=== PATIENT | male | born 2000 | race African-American/Black ===

== ENCOUNTER → 2025-01-15 11:16 | Outpatient (CLI) | payer OTHER, SELFPAY ==
[2025-01-15 12:17] LABS: Influenza A - CEPHEID Flu A NEGATIVE (NEGATIVE); Influenza B - CEPHEID Flu B NEGATIVE (NEGATIVE); Respiratory Syncytial Virus Negative (Negative)
[2025-01-15 14:58] LABS: COVID-19 CEPHEID 4-PLEX PCR Negative (Negative)
== END ==
PROVIDERS: PCP Family Medicine; Visit Provider Nurse Practitioner Family
DX: J02.9 Acute pharyngitis, unspecified (principal); Z20.828 Contact with and (suspected) exposure to other viral communicable diseases
CPT/HCPCS: 0241U; 87070; 87077; 87147

== ENCOUNTER → 2025-01-23 15:29 | Outpatient (CLI) | payer OTHER, SELFPAY | LOC: LAB 15:30 | PROVIDERS: PCP Family Medicine; Visit Provider Nurse Practitioner Family | DX: L98.9 Disorder of the skin and subcutaneous tissue, unspecified (principal) | CPT/HCPCS: 87070; 87205 ==

== ENCOUNTER 2025-01-30 12:54 | Emergency (ER) | payer OTHER, SELFPAY ==
[2025-01-30 13:20] VITALS: BP 136/81; PULSE 75; RESP 18; TEMP 36.8; O2SAT 99; BMI 33.8
--- NOTE | 2025-01-30 13:37 | DI.RAD.S_ITS ---
PROCEDURE: XR CHEST 2V INDICATIONS: URI/SOB x 1 week TECHNIQUE: 2 views of the chest were acquired. COMPARISON: None. FINDINGS: Surgical changes and devices: None. Lungs and pleura: Lungs are clear. No pleural effusions or pneumothorax. Mediastinum: Mediastinal contours are normal. Heart size is normal. Bones and chest wall: No suspicious bony abnormalities. Soft tissues appear unremarkable. IMPRESSION: No acute cardiopulmonary abnormality is seen. Approved by: Dayday Jose M.D. on 01/30/2025 at 13:13
[2025-01-30 14:12] LABS: Influenza A - CEPHEID Flu A NEGATIVE (NEGATIVE); Influenza B - CEPHEID Flu B NEGATIVE (NEGATIVE); Respiratory Syncytial Virus Negative (Negative)
[2025-01-30 14:16] LABS: COVID-19 CEPHEID 4-PLEX PCR Negative (Negative)
--- NOTE | 2025-01-30 14:25 | ED.URI ---
HPI - URI/Sore Throat General Chief Complaint: Upper Respiratory Symptoms Stated Complaint: Back Pain, Cold Symptoms Time Seen by Provider: 01/30/25 14:24 Source: patient Mode of arrival: Ambulatory Related Data Home Medications Medication Instructions Recorded Confirmed estradiol 2 mg tablet mg PO DIRECTED 09/16/24 01/29/25 needle (disp) 25 gauge 25 gauge x #1,000 ea 01/15/25 01/29/25 1 (BD PrecisionGlide) syringe (disposable) 1 mL (BD #1,000 ea 01/15/25 01/29/25 Luer-Deon Syringe) Previous Rx's Medication Instructions Recorded syringe with needle, safety 1 mL #100 ea 10/14/24 25 gauge x 1 (Aqinject Safety Syringe) estradiol cypionate 5 mg/mL 3 mg (0.6 mL) IM QWEEK #10 mL 11/30/24 intramuscular oil (Depo-Estradiol) spironolactone 50 mg tablet 50 mg PO BID #180 tabs 11/30/24 mometasone 50 mcg/actuation nasal 2 spray intranasal DAILY #17 grams 01/15/25 spray mupirocin 2 % topical ointment 1 applic topical TID #15 grams 01/23/25 triamcinolone acetonide 0.5 % 1 applic topical TID #15 grams 01/23/25 topical cream albuterol sulfate 90 mcg/actuation 2 puff inhalation Q6H PRN 01/29/25 aerosol inhaler shortness of breath or wheezing #6.7 grams Allergies Allergy/AdvReac Type Severity Reaction Status Date / Time Penicillins Allergy Mild Rash Verified 01/29/25 10:21 Patient History Medical History (Updated 09/16/24 @ 16:49 by Yulisa Potter MD) Gender dysphoria Family History (Updated 09/16/24 @ 16:50 by Yulisa Potter MD) Grandmother Diabetes mellitus Grandfather Hypertension Social History (Updated 09/16/24 @ 16:50 by Yulisa Potter MD) marital status: unmarried,single household members: family lives independently: Yes education level: high school occupational status: employed Smoking Status: Former smoker second hand exposure: No substance use type: marijuana Smoking Status: Former smoker Exam Initial Vital Signs Initial Vital Signs: Vital Signs Temperature 98.2 F 01/30/25 13:20 Pulse Rate 75 05/24/25 13:20 Respiratory Rate 18 01/30/25 13:20 Blood Pressure 136/81 01/30/25 13:20 Pulse Oximetry 99 01/30/25 13:20 Oxygen Delivery Method Room Air 01/30/25 13:20 Course Orders Ordered: ED Orders 01/30/25 13:30 Covid-19 + FLU A/B + RSV - PCR Stat 01/30/25 13:37 XR chest 2V Stat Vital Signs Vital signs: Vital Signs - 8 hr 01/30/25 13:20 Temperature 98.2 F Pulse Rate 75 Respiratory Rate 18 Blood Pressure 136/81 Pulse Oximetry 99 Oxygen Delivery Method Room Air MDM - URI/Sore Throat Lab Data Labs: Lab Results 01/30/25 Range/Units 13:30 SARS-CoV-2 (PCR) Negative (Negative) Influenza A (RT-PCR) Flu a negative (NEGATIVE) Influenza B (RT-PCR) Flu b negative (NEGATIVE) RSV (PCR) Negative (Negative) Discharge Plan Departure Prescriptions: No Action mupirocin 2 % ointment 1 applic topical TID Qty: 15 0RF triamcinolone acetonide 0.5 % cream 1 applic topical TID Qty: 15 0RF albuterol sulfate 90 mcg/actuation HFA aerosol inhaler 2 puff inhalation Q6H PRN (Reason: shortness of breath or wheezing) Qty: 6.7 0RF estradiol 2 mg tablet PO DIRECTED (DME) Aqinject Safety Syringe 1 mL 25 gauge x 1 syringe See Rx Instructions .Route Qty: 100 0RF Rx Instructions: Use to inject estradiol IM QW (DME) BD PrecisionGlide 25 gauge x 1 needle See Rx Instructions .ROUTE .MEDSUPPLY Qty: 1000 Rx Instructions: As directed (DME) BD Luer-Deon Syringe 1 mL syringe See Rx Instructions .ROUTE .MEDSUPPLY Qty: 1000 Patient Comments: USE WITH NEEDLE TO INJECT ESTRADIOL INTRAMUSCULARLY ONCE A WEEK Rx Instructions: As directed mometasone 50 mcg/actuation spray,non-aerosol 2 spray intranasal DAILY Qty: 17 0RF Rx Instructions: administer into each nostril Depo-Estradiol 5 mg/mL oil 3 mg IM QWEEK Qty: 10 3RF Rx Instructions: inject IM weekly spironolactone 50 mg tablet 50 mg PO BID Qty: 180 3RF Referrals: Yulisa Potter MD [Primary Care Provider] -
== END 2025-01-30 14:24 | disposition left against medical advice (07) ==
PROVIDERS: Emergency Medicine; Emergency Provider Physician Assistant; PCP Family Medicine
DX: R06.02 Shortness of breath (principal)
CPT/HCPCS: 0241U; 71046; 99281

== ENCOUNTER 2025-01-31 11:38 | Emergency (ER) | payer OTHER, SELFPAY ==
[2025-01-31 11:51] VITALS: BP 137/78; PULSE 86; RESP 20; TEMP 37; O2SAT 99; BMI 34.1
--- NOTE | 2025-01-31 12:16 | ED_ITS ---
HPI - Back Pain/Injury <Suzanne Graham PA-C - Last Filed: 01/31/25 14:22> General Chief Complaint: Back Pain/Injury Stated Complaint: Back Pain Time Seen by Provider: 01/31/25 12:15 History of Present Illness HPI Narrative: Peng (they/them) is a pleasant 24-year-old male who presents to the emergency department for left flank pain and dysuria x3 days. Patient has also been having some sinus congestion and subjective fevers for the same duration of time. They came to the emergency department yesterday and had a negative COVID/flu/RSV swab and negative chest x-ray but left before being seen. Patient states her having worsening burning with urination and they noticed some redness around the urethra in the have occasional left testicular pain as well started today. They have not been sexually active since February of 2024. Deny abdominal pain, nausea, vomiting, hematuria chest pain, shortness of breath, trauma to the back. Describes pain is across the entire low back but worse on the left side / left flank. No medications prior to arrival. Related Data Home Medications Medication Instructions Recorded Confirmed estradiol 2 mg tablet mg PO DIRECTED 09/16/24 01/31/25 needle (disp) 25 gauge 25 gauge x #1,000 ea 01/15/25 01/31/25 1 (BD PrecisionGlide) syringe (disposable) 1 mL (BD #1,000 ea 01/15/25 01/31/25 Luer-Deon Syringe) Previous Rx's Medication Instructions Recorded syringe with needle, safety 1 mL #100 ea 10/14/24 25 gauge x 1 (Aqinject Safety Syringe) estradiol cypionate 5 mg/mL 3 mg (0.6 mL) IM QWEEK #10 mL 11/30/24 intramuscular oil (Depo-Estradiol) spironolactone 50 mg tablet 50 mg PO BID #180 tabs 11/30/24 mupirocin 2 % topical ointment 1 applic topical TID #15 grams 01/23/25 triamcinolone acetonide 0.5 % 1 applic topical TID #15 grams 01/23/25 topical cream cefpodoxime 200 mg tablet 200 mg PO Q12H 10 days #20 tabs 01/31/25 Allergies Allergy/AdvReac Type Severity Reaction Status Date / Time Penicillins Allergy Mild Rash Verified 01/31/25 11:26 Review of Systems <Suzanne Graham PA-C - Last Filed: 01/31/25 14:22> Review of Systems ROS Unobtainable: All systems reviewed & are unremarkable except as noted in HPI and below Patient History <Suzanne Graham PA-C - Last Filed: 01/31/25 14:22> Medical History Gender dysphoria Family History Grandmother Diabetes mellitus Grandfather Hypertension Social History marital status: unmarried,single household members: family lives independently: Yes education level: high school occupational status: employed Smoking Status: Never smoker second hand exposure: No substance use type: marijuana Smoking Status: Never smoker Exam <Suzanne Graham PA-C - Last Filed: 01/31/25 14:22> Narrative Exam Narrative: GENERAL: 24 year old patient appears stated age. Well-developed patient, in no acute distress. HEAD: Atraumatic. Normocephalic. EYES: Extraocular motions intact. No scleral icterus. No injection or drainage. ENT: Normal TMs bilaterally. Nose without bleeding, purulent drainage. Throat without erythema, tonsillar hypertrophy or exudate. Airway patent. NECK: Trachea midline. Cervical ROM intact. CARDIOVASCULAR: Regular rate and rhythm. RESPIRATORY: ?Nonlabored respirations. Occasional dry cough. ?Speaking in clear, full sentences. ?Clear to auscultation. Breath sounds equal bilaterally. No wheezes, rales, or rhonchi. ? GASTROINTESTINAL: Abdomen soft, non-tender, nondistended. No rebound or guarding. Patient gave verbal consent for exam. Patient had tenderness to palpation of left testicle. No obvious erythema, drainage or lesions on the penis. Normal circumcised appearing penis. EXTREMITIES: No edema or joint tenderness. BACK: Subjective tenderness bilateral lower lumbar paraspinal region. NEURO: AOx3. ?Clear speech. ?Moves all 4 extremities appropriately. SKIN: No rash or erythema of visible areas Initial Vital Signs Initial Vital Signs: Vital Signs Temperature 98.6 F 01/31/25 11:51 Pulse Rate 86 01/31/25 11:51 Respiratory Rate 20 01/31/25 11:51 Blood Pressure 137/78 01/31/25 11:51 Pulse Oximetry 99 01/31/25 11:51 Oxygen Delivery Method Room Air 01/31/25 11:51 <Magdi Richards MD - Last Filed: 01/31/25 15:24> Initial Vital Signs Initial Vital Signs: Vital Signs Temperature 98.6 F 01/31/25 11:51 Pulse Rate 86 01/31/25 11:51 Respiratory Rate 20 01/31/25 11:51 Blood Pressure 137/78 01/31/25 11:51 Pulse Oximetry 99 01/31/25 11:51 Oxygen Delivery Method Room Air 01/31/25 11:51 Course <Suzanne Graham PA-C - Last Filed: 01/31/25 14:22> Orders Ordered: ED Orders 01/31/25 11:59 Respiratory Panel (Film Array) Stat 01/31/25 12:08 Chlamydia Gonorrhea PCR -URINE Stat Urine Culture Stat Urine Microscopic Stat 01/31/25 12:29 XR KUB Stat 01/31/25 12:36 US scrotum Stat 01/31/25 12:50 CBC Auto Diff [Complete Blood Count AUTO DIFF] Stat CMP [Comprehensive Metabolic Panel] Stat Lactate (Lactic Acid) Stat Lipase Stat Discontinued Medications Acetaminophen (Acetaminophen 325 Mg Tablet) 975 mg PO NOW ONE Stop: 01/31/25 12:30 Last Admin: 01/31/25 13:02 Dose: 975 mg Documented By: RB Sodium Chloride (Normal Saline 0.9%) 1,000 mls @ 1,000 mls/hr IV BOLUS ONE Stop: 01/31/25 13:35 Last Infusion: 01/31/25 14:28 Dose: Infused Documented By: Admin: 01/31/25 13:37 Dose: 1,000 mls/hr Documented By: RB Ceftriaxone Sodium 1,000 mg/ (Sodium Chloride) 100 mls @ 200 mls/hr IV NOW ONE Stop: 01/31/25 13:30 Last Infusion: 01/31/25 14:29 Dose: Infused Documented By: Admin: 01/31/25 13:53 Dose: 200 mls/hr Documented By: MPO Ibuprofen (Ibuprofen 400 Mg Tablet) 600 mg PO NOW ONE Stop: 01/31/25 12:30 Last Admin: 01/31/25 13:02 Dose: 600 mg Documented By: RB Vital Signs Vital signs: Vital Signs - 8 hr 01/31/25 11:51 01/31/25 13:32 01/31/25 14:29 Temperature 98.6 F 98.8 F Pulse Rate 86 84 80 Respiratory Rate 20 20 20 Blood Pressure 137/78 130/73 130/72 Pulse Oximetry 99 96 97 Oxygen Delivery Method Room Air Room Air Room Air <Magdi Richards MD - Last Filed: 01/31/25 15:24> Orders Ordered: ED Orders 01/31/25 11:59 Respiratory Panel (Film Array) Stat 01/31/25 12:08 Chlamydia Gonorrhea PCR -URINE Stat Urine Culture Stat Urine Microscopic Stat 01/31/25 12:29 XR KUB Stat 01/31/25 12:36 US scrotum Stat 01/31/25 12:50 CBC Auto Diff [Complete Blood Count AUTO DIFF] Stat CMP [Comprehensive Metabolic Panel] Stat Lactate (Lactic Acid) Stat Lipase Stat Discontinued Medications Acetaminophen (Acetaminophen 325 Mg Tablet) 975 mg PO NOW ONE Stop: 01/31/25 12:30 Last Admin: 01/31/25 13:02 Dose: 975 mg Documented By: RB Sodium Chloride (Normal Saline 0.9%) 1,000 mls @ 1,000 mls/hr IV BOLUS ONE Stop: 01/31/25 13:35 Last Infusion: 01/31/25 14:28 Dose: Infused Documented By: Admin: 01/31/25 13:37 Dose: 1,000 mls/hr Documented By: RB Ceftriaxone Sodium 1,000 mg/ (Sodium Chloride) 100 mls @ 200 mls/hr IV NOW ONE Stop: 01/31/25 13:30 Last Infusion: 01/31/25 14:29 Dose: Infused Documented By: Admin: 01/31/25 13:53 Dose: 200 mls/hr Documented By: MPO Ibuprofen (Ibuprofen 400 Mg Tablet) 600 mg PO NOW ONE Stop: 01/31/25 12:30 Last Admin: 01/31/25 13:02 Dose: 600 mg Documented By: RB Vital Signs Vital signs: Vital Signs - 8 hr 01/31/25 11:51 01/31/25 13:32 01/31/25 14:29 Temperature 98.6 F 98.8 F Pulse Rate 86 84 80 Respiratory Rate 20 20 20 Blood Pressure 137/78 130/73 130/72 Pulse Oximetry 99 96 97 Oxygen Delivery Method Room Air Room Air Room Air MDM - Back Pain/Injury <Suzanne Graham PA-C - Last Filed: 01/31/25 14:22> Medical Records Attestation: I reviewed the patient's medical records. Lab Data 01/31/25 12:50 01/31/25 12:50 Labs: Lab Results 01/31/25 01/31/25 01/31/25 Range/Units 11:59 11:59 11:59 WBC (4.5-11.0) X10^3/uL RBC (4.5-5.9) X10^6/uL Hgb (13.5-17.5) g/dL Hct (41-53) % MCV (80-100) fL MCH (26-34) PG MCHC (30-36) % RDW (11.6-14.8) % Plt Count (150-400) X10^3/uL Neut % (Auto) (50-75) % Lymph % (Auto) (25-40) % [place] % (Auto) (3-14) % Eos % (Auto) (2-4) % Baso % (Auto) (0-2) % Neut # (Auto) (8985-2148) /uL Lymph # (Auto) (1736-4192) /uL [place] # (Auto) (0-900) /uL Eos # (Auto) (0-450) /uL Baso # (Auto) (0-100) /uL Sodium (137-145) mmol/L Potassium (3.4-5.1) mmol/L Chloride (98-107) mmol/L Carbon Dioxide (22-32) mmol/L BUN (9-20) mg/dL Creatinine (0.66-1.25) mg/dL Estimated GFR (>60) mL/min BUN/Creatinine Ratio (6-22) Glucose (70-99) mg/dL Lactate (0.7-2.1) mmol/L Calcium (8.4-10.2) mg/dL Total Bilirubin (0.2-1.3) mg/dL AST (17-59) IU/L ALT (<50) IU/L Alkaline Phosphatase (38-126) U/L Total Protein (6.3-8.2) g/dL Albumin (3.5-5.0) g/dL Globulin (1.7-4.1) g/dL Albumin/Globulin Ratio (1.0-2.8) Lipase (23-300) U/L Urine RBC (0-5/HPF) Urine WBC (0-5/HPF) Ur Squamous Epith Cells (0-5/HPF) Urine Bacteria (None) Ur Culture Indicated? Vol Urine Centrifuged Chlamy pneumoniae PCR Not detected (Not Detect) Adenovirus (PCR) Not detected (Not Detect) B. pertussis DNA (PCR) Not detected (Not Detect) B.parapertussis DNA PCR Not detected (Not Detecte) Ur Chlamydia DNA (PCR) Coronavirus OC43 (PCR) Not detected (Not Detect) Coronavirus HKU1 (PCR) Not detected (Not Detect) Coronavirus 229E (PCR) Not detected (Not Detect) SARS-CoV-2 (PCR) Cancelled Not detected Coronavirus NL63 (PCR) Not detected (Not Detect) Human Metapneumovir PCR Not detected (Not Detect) Influenza A (RT-PCR) Cancelled Influenza Type A (PCR) Not detected (Not Detect) Influenza B (RT-PCR) Cancelled Influenza Type B (PCR) Not detected (Not Detect) M. pneumoniae (PCR) Not detected (Not Detect) Parainfluenza 1 (PCR) Not detected (Not Detect) Parainfluenza 2 (PCR) Not detected (Not Detect) Parainfluenza 3 (PCR) Not detected (Not Detect) Parainfluenza 4 (PCR) Not detected (Not Detect) RSV (PCR) Cancelled Not detected Entero/Rhino (PCR) Detected H (Not Detect) N gonorrhoeae DNA (PCR) 01/31/25 01/31/25 Range/Units 12:08 12:50 WBC 13.3 H (4.5-11.0) X10^3/uL RBC 4.71 (4.5-5.9) X10^6/uL Hgb 14.4 (13.5-17.5) g/dL Hct 41.5 (41-53) % MCV 88.1 (80-100) fL MCH 30.5 (26-34) PG MCHC 34.6 (30-36) % RDW 13.5 (11.6-14.8) % Plt Count 380 (150-400) X10^3/uL Neut % (Auto) 79.5 H (50-75) % Lymph % (Auto) 9.2 L (25-40) % [place] % (Auto) 8.2 (3-14) % Eos % (Auto) 2.7 (2-4) % Baso % (Auto) 0.4 (0-2) % Neut # (Auto) 46024 H (1792-1233) /uL Lymph # (Auto) 1200 (5305-3075) /uL [place] # (Auto) 1100 H (0-900) /uL Eos # (Auto) 400 (0-450) /uL Baso # (Auto) 100 (0-100) /uL Sodium 137 (137-145) mmol/L Potassium 3.9 (3.4-5.1) mmol/L Chloride 103 (98-107) mmol/L Carbon Dioxide 23 (22-32) mmol/L BUN 13 (9-20) mg/dL Creatinine 0.77 (0.66-1.25) mg/dL Estimated GFR > 60 (>60) mL/min BUN/Creatinine Ratio 16.9 (6-22) Glucose 82 (70-99) mg/dL Lactate 0.9 (0.7-2.1) mmol/L Calcium 9.4 (8.4-10.2) mg/dL Total Bilirubin 0.6 (0.2-1.3) mg/dL AST 28 (17-59) IU/L ALT 21 (<50) IU/L Alkaline Phosphatase 51 (38-126) U/L Total Protein 8.6 H (6.3-8.2) g/dL Albumin 4.7 (3.5-5.0) g/dL Globulin 3.9 (1.7-4.1) g/dL Albumin/Globulin Ratio 1.2 (1.0-2.8) Lipase 47 (23-300) U/L Urine RBC None seen (0-5/HPF) Urine WBC 0-1/hpf (0-5/HPF) Ur Squamous Epith Cells 1-5 /hpf (0-5/HPF) Urine Bacteria Few (2-10) H (None) Ur Culture Indicated? Specimen cultured Vol Urine Centrifuged 10ml (spun) Chlamy pneumoniae PCR (Not Detect) Adenovirus (PCR) (Not Detect) B. pertussis DNA (PCR) (Not Detect) B.parapertussis DNA PCR (Not Detecte) Ur Chlamydia DNA (PCR) Not detected Coronavirus OC43 (PCR) (Not Detect) Coronavirus HKU1 (PCR) (Not Detect) Coronavirus 229E (PCR) (Not Detect) SARS-CoV-2 (PCR) Coronavirus NL63 (PCR) (Not Detect) Human Metapneumovir PCR (Not Detect) Influenza A (RT-PCR) Influenza Type A (PCR) (Not Detect) Influenza B (RT-PCR) Influenza Type B (PCR) (Not Detect) M. pneumoniae (PCR) (Not Detect) Parainfluenza 1 (PCR) (Not Detect) Parainfluenza 2 (PCR) (Not Detect) Parainfluenza 3 (PCR) (Not Detect) Parainfluenza 4 (PCR) (Not Detect) RSV (PCR) Entero/Rhino (PCR) (Not Detect) N gonorrhoeae DNA (PCR) Not detected Urine Dip Bedside Urine Glucose Negative Bedside Urine Bilirubin - Negative Bedside Urine Ketone - Negative Urine Specific [place] 1.015 Bedside Urine Occult Blood - Negative Bedside Urine pH 6.0 Bedside Urine Protein - Negative Bedside Urine Urobilinogen - Negative Bedside Urine Nitrite - Negative Bedside Urine Leukocytes +/- 15 Esterase Imaging Data KUB X-Ray: Radiologist's Impression: PROCEDURE: XR KUB INDICATIONS: L flank pain TECHNIQUE: One view of the abdomen acquired. COMPARISON: None. FINDINGS: Surgical changes and devices: None. Bowel: Bowel gas pattern is normal. Moderate colonic stool. Soft tissues: No suspicious abdominal calcifications. Visualized solid organ contours appear normal in size. Bones: No suspicious bony lesions. IMPRESSION: No renal calcification identified radiographically. Moderate colonic stool. Nonobstructive bowel gas pattern. Approved by: Dayday Jose M.D. on 01/31/2025 at 12:54 Scrotum US: Radiologist's Impression: PROCEDURE: US SCROTUM INDICATIONS: Left testicular pain TECHNIQUE: Real-time scanning was performed of the scrotum and testicles, with image documentation. Color and pulse Doppler interrogation was performed of both testicles. COMPARISON: None. FINDINGS: Right: Testicle is normal in size at 3.6 x 1.6 x 2.7 cm, and homogenous in echotexture. Epididymis is normal in overall size and morphology. 3 mm simple cyst in the epididymis. No hydrocele or varicoceles. Overlying scrotal skin is normal in thickness. Left: Testicle is normal in size at 3.4 x 1.9 x 2.4 cm, and homogeneous in echotexture. Epididymis is normal in overall size and morphology. Simple cysts are seen in the epididymis measuring up to 5 mm. No hydrocele or varicoceles. Overlying scrotal skin is normal in thickness. Doppler: Color and pulse Doppler demonstrate normal and symmetric arterial flow in both testicles. IMPRESSION: No sonographic signs of testicular torsion or epididymitis. Approved by: Dayday Jose M.D. on 01/31/2025 at 12:56 MDM Narrative Medical decision making narrative: 24-year-old male who presents to the emergency department for left flank pain and dysuria x3 days. Patient has also been having some sinus congestion and subjective fevers for the same duration of time. Differential diagnosis includes but is not limited to nephrolithiasis, pyelonephritis, urinary tract infection, STD, viral syndrome, orchitis, epididymitis, testicular torsion, pneumonia, bronchitis, etc. On exam patient is in no acute distress, nontoxic-appearing, all vital signs within normal limits. He has tenderness to palpation of left testicle. We will obtain KUB x-ray, scrotal ultrasound, CBC, CMP, lipase, treat with ibuprofen and Tylenol and IV fluids. Labs reveal elevated WBC count of 13.3 with neutrophil 79.5%. CMP reveals normal renal function with a creatinine of 0.77, normal lactate 0.9. Normal LFTs and lipase. Urinalysis does reveal few bacteria, WBCs. Given symptoms of dysuria, urethritis, low back pain, we will treat with 1 g of ceftriaxone which will also cover for potential gonorrhea as this lab will not result quickly. Patient is agreeable to this plan. Viral swab positive for entero/rhinovirus. KUB x-ray reveals no renal calcification, moderate colonic stool, nonobstructive bowel gas pattern. Scrotal ultrasound reveals no sonographic signs of testicular torsion or epididymitis, patient does have bilateral simple epididymal cysts. Printed all imaging results with the patient and discussed including chest x-ray from yesterday. At this time suspect both viral URI from entero/rhinovirus in addition to urinary tract infection. Patient was given 1 dose of Rocephin in the emergency department, we will prescribed cefpodoxime b.i.d. times 10 days for urinary tract infection, potential pyelonephritis. Patient's pain is improved significantly, abdominal exam is benign. Recommended rest, hydration, ibuprofen/acetaminophen, completion of antibiotics, follow up with PCP. We discussed strict ED return precautions. Patient verbalized understanding of all information to go with the plan. They are stable for discharge home. <Magdi Richards MD - Last Filed: 01/31/25 15:24> Lab Data Labs: Lab Results 01/31/25 01/31/25 01/31/25 Range/Units 11:59 11:59 11:59 WBC (4.5-11.0) X10^3/uL RBC (4.5-5.9) X10^6/uL Hgb (13.5-17.5) g/dL Hct (41-53) % MCV (80-100) fL MCH (26-34) PG MCHC (30-36) % RDW (11.6-14.8) % Plt Count (150-400) X10^3/uL Neut % (Auto) (50-75) % Lymph % (Auto) (25-40) % [place] % (Auto) (3-14) % Eos % (Auto) (2-4) % Baso % (Auto) (0-2) % Neut # (Auto) (1547-2232) /uL Lymph # (Auto) (1441-5352) /uL [place] # (Auto) (0-900) /uL Eos # (Auto) (0-450) /uL Baso # (Auto) (0-100) /uL Sodium (137-145) mmol/L Potassium (3.4-5.1) mmol/L Chloride (98-107) mmol/L Carbon Dioxide (22-32) mmol/L BUN (9-20) mg/dL Creatinine (0.66-1.25) mg/dL Estimated GFR (>60) mL/min BUN/Creatinine Ratio (6-22) Glucose (70-99) mg/dL Lactate (0.7-2.1) mmol/L Calcium (8.4-10.2) mg/dL Total Bilirubin (0.2-1.3) mg/dL AST (17-59) IU/L ALT (<50) IU/L Alkaline Phosphatase (38-126) U/L Total Protein (6.3-8.2) g/dL Albumin (3.5-5.0) g/dL Globulin (1.7-4.1) g/dL Albumin/Globulin Ratio (1.0-2.8) Lipase (23-300) U/L Urine RBC (0-5/HPF) Urine WBC (0-5/HPF) Ur Squamous Epith Cells (0-5/HPF) Urine Bacteria (None) Ur Culture Indicated? Vol Urine Centrifuged Chlamy pneumoniae PCR Not detected (Not Detect) Adenovirus (PCR) Not detected (Not Detect) B. pertussis DNA (PCR) Not detected (Not Detect) B.parapertussis DNA PCR Not detected (Not Detecte) Ur Chlamydia DNA (PCR) Coronavirus OC43 (PCR) Not detected (Not Detect) Coronavirus HKU1 (PCR) Not detected (Not Detect) Coronavirus 229E (PCR) Not detected (Not Detect) SARS-CoV-2 (PCR) Cancelled Not detected Coronavirus NL63 (PCR) Not detected (Not Detect) Human Metapneumovir PCR Not detected (Not Detect) Influenza A (RT-PCR) Cancelled Influenza Type A (PCR) Not detected (Not Detect) Influenza B (RT-PCR) Cancelled Influenza Type B (PCR) Not detected (Not Detect) M. pneumoniae (PCR) Not detected (Not Detect) Parainfluenza 1 (PCR) Not detected (Not Detect) Parainfluenza 2 (PCR) Not detected (Not Detect) Parainfluenza 3 (PCR) Not detected (Not Detect) Parainfluenza 4 (PCR) Not detected (Not Detect) RSV (PCR) Cancelled Not detected Entero/Rhino (PCR) Detected H (Not Detect) N gonorrhoeae DNA (PCR) 01/31/25 01/31/25 Range/Units 12:08 12:50 WBC 13.3 H (4.5-11.0) X10^3/uL RBC 4.71 (4.5-5.9) X10^6/uL Hgb 14.4 (13.5-17.5) g/dL Hct 41.5 (41-53) % MCV 88.1 (80-100) fL MCH 30.5 (26-34) PG MCHC 34.6 (30-36) % RDW 13.5 (11.6-14.8) % Plt Count 380 (150-400) X10^3/uL Neut % (Auto) 79.5 H (50-75) % Lymph % (Auto) 9.2 L (25-40) % [place] % (Auto) 8.2 (3-14) % Eos % (Auto) 2.7 (2-4) % Baso % (Auto) 0.4 (0-2) % Neut # (Auto) 13201 H (1637-5548) /uL Lymph # (Auto) 1200 (0656-2743) /uL [place] # (Auto) 1100 H (0-900) /uL Eos # (Auto) 400 (0-450) /uL Baso # (Auto) 100 (0-100) /uL Sodium 137 (137-145) mmol/L Potassium 3.9 (3.4-5.1) mmol/L Chloride 103 (98-107) mmol/L Carbon Dioxide 23 (22-32) mmol/L BUN 13 (9-20) mg/dL Creatinine 0.77 (0.66-1.25) mg/dL Estimated GFR > 60 (>60) mL/min BUN/Creatinine Ratio 16.9 (6-22) Glucose 82 (70-99) mg/dL Lactate 0.9 (0.7-2.1) mmol/L Calcium 9.4 (8.4-10.2) mg/dL Total Bilirubin 0.6 (0.2-1.3) mg/dL AST 28 (17-59) IU/L ALT 21 (<50) IU/L Alkaline Phosphatase 51 (38-126) U/L Total Protein 8.6 H (6.3-8.2) g/dL Albumin 4.7 (3.5-5.0) g/dL Globulin 3.9 (1.7-4.1) g/dL Albumin/Globulin Ratio 1.2 (1.0-2.8) Lipase 47 (23-300) U/L Urine RBC None seen (0-5/HPF) Urine WBC 0-1/hpf (0-5/HPF) Ur Squamous Epith Cells 1-5 /hpf (0-5/HPF) Urine Bacteria Few (2-10) H (None) Ur Culture Indicated? Specimen cultured Vol Urine Centrifuged 10ml (spun) Chlamy pneumoniae PCR (Not Detect) Adenovirus (PCR) (Not Detect) B. pertussis DNA (PCR) (Not Detect) B.parapertussis DNA PCR (Not Detecte) Ur Chlamydia DNA (PCR) Not detected Coronavirus OC43 (PCR) (Not Detect) Coronavirus HKU1 (PCR) (Not Detect) Coronavirus 229E (PCR) (Not Detect) SARS-CoV-2 (PCR) Coronavirus NL63 (PCR) (Not Detect) Human Metapneumovir PCR (Not Detect) Influenza A (RT-PCR) Influenza Type A (PCR) (Not Detect) Influenza B (RT-PCR) Influenza Type B (PCR) (Not Detect) M. pneumoniae (PCR) (Not Detect) Parainfluenza 1 (PCR) (Not Detect) Parainfluenza 2 (PCR) (Not Detect) Parainfluenza 3 (PCR) (Not Detect) Parainfluenza 4 (PCR) (Not Detect) RSV (PCR) Entero/Rhino (PCR) (Not Detect) N gonorrhoeae DNA (PCR) Not detected Urine Dip Bedside Urine Glucose Negative Bedside Urine Bilirubin - Negative Bedside Urine Ketone - Negative Urine Specific [place] 1.015 Bedside Urine Occult Blood - Negative Bedside Urine pH 6.0 Bedside Urine Protein - Negative Bedside Urine Urobilinogen - Negative Bedside Urine Nitrite - Negative Bedside Urine Leukocytes +/- 15 Esterase Discharge Plan Departure Patient Disposition: Home Clinical Impression: Acute UTI, Rhinovirus Instructions: DI for Urinary Tract Infection (UTI), DI for Viral Upper Respiratory Infection -- Adult Activity Restrictions/Additional Instructions: Dear Peng, Thank you for coming to the emergency department. Today tested positive for entero/rhinovirus which is a upper respiratory viral infection. Your urine test was also concerning for a urinary tract infection so you were treated with 1 dose of IV antibiotics and you have been prescribed in additional 10 days of oral antibiotics which you should start tomorrow. Your scrotal ultrasound showed simple epididymal cysts but no other abnormalities and the chest and abdominal x-rays also did not show any abnormalities. You do have a moderate amount of stool in your colon, you can use MiraLax daily to help soften stools. Please take Ibuprofen (Motrin/Advil) or Acetaminophen (Tylenol) for pain. These are available over the counter. You may take Ibuprofen 600 mg every 8 hours with food for pain. You may also take Acetaminophen 650 mg every 4-6 hours for pain. Do not exceed 3000 mg of Tylenol a day as this can cause liver damage. Do not drink alcohol with either of these medications. Please follow up with the primary care doctor, complete full course of antibiotics, and return to the ER if you have any new or worsening symptoms. You will be called if any changes need to be made to your antibiotics based on your urine culture. Please follow up with your primary care doctor within the next 2-3 days for ER follow-up. (If you do not have a PCP you can call [phone]. ?to schedule an appointment with an Primary Care Provider) IF YOU DEVELOP ANY NEW OR WORSENING SYMPTOMS, RETURN TO THE ER! Please read the attached instructions, they highlight more specific treatments and interventions for you at home. Thank you for letting me participate in your care, Suzanne Graham PA-C Prescriptions: New cefpodoxime 200 mg tablet 200 mg PO Q12H 10 Days Qty: 20 0RF Rx Instructions: must administer with a meal/food No Action mupirocin 2 % ointment 1 applic topical TID Qty: 15 0RF triamcinolone acetonide 0.5 % cream 1 applic topical TID Qty: 15 0RF estradiol 2 mg tablet PO DIRECTED (DME) Aqinject Safety Syringe 1 mL 25 gauge x 1 syringe See Rx Instructions .Route Qty: 100 0RF Rx Instructions: Use to inject estradiol IM QW (DME) BD PrecisionGlide 25 gauge x 1 needle See Rx Instructions .ROUTE .MEDSUPPLY Qty: 1000 Rx Instructions: As directed (DME) BD Luer-Deon Syringe 1 mL syringe See Rx Instructions .ROUTE .MEDSUPPLY Qty: 1000 Patient Comments: USE WITH NEEDLE TO INJECT ESTRADIOL INTRAMUSCULARLY ONCE A WEEK Rx Instructions: As directed Depo-Estradiol 5 mg/mL oil 3 mg IM QWEEK Qty: 10 3RF Rx Instructions: inject IM weekly spironolactone 50 mg tablet 50 mg PO BID Qty: 180 3RF Referrals: Yulisa Potter MD [Primary Care Provider] - Stand Alone Forms: Patient Portal/API/Survey ED Sign-out <Magdi Richards MD - Last Filed: 01/31/25 15:24> Cosign ED Attending Cosignature Attestation: I was immediately available in the department for consultation. This documentation has been reviewed and I agree with assessment and plan. Supervised by Magdi Richards MD
[2025-01-31 12:27] LABS: Urine Volume 10mL (spun)
--- NOTE | 2025-01-31 12:29 | DI.RAD.S_ITS ---
PROCEDURE: XR KUB INDICATIONS: L flank pain TECHNIQUE: One view of the abdomen acquired. COMPARISON: None. FINDINGS: Surgical changes and devices: None. Bowel: Bowel gas pattern is normal. Moderate colonic stool. Soft tissues: No suspicious abdominal calcifications. Visualized solid organ contours appear normal in size. Bones: No suspicious bony lesions. IMPRESSION: No renal calcification identified radiographically. Moderate colonic stool. Nonobstructive bowel gas pattern. Approved by: Dayday Jose M.D. on 01/31/2025 at 12:54
[2025-01-31 12:32] LABS: Bacteria Urine Few (2-10); Culture Indicated Urine Specimen Cultured; RBC Urine None Seen (0-5/HPF); Squamous Epithelial Cell Urine 1-5 /HPF (0-5/HPF); WBC Urine 0-1/HPF (0-5/HPF)
--- NOTE | 2025-01-31 12:36 | DI.US.S_ITS ---
PROCEDURE: US SCROTUM INDICATIONS: Left testicular pain TECHNIQUE: Real-time scanning was performed of the scrotum and testicles, with image documentation. Color and pulse Doppler interrogation was performed of both testicles. COMPARISON: None. FINDINGS: Right: Testicle is normal in size at 3.6 x 1.6 x 2.7 cm, and homogenous in echotexture. Epididymis is normal in overall size and morphology. 3 mm simple cyst in the epididymis. No hydrocele or varicoceles. Overlying scrotal skin is normal in thickness. Left: Testicle is normal in size at 3.4 x 1.9 x 2.4 cm, and homogeneous in echotexture. Epididymis is normal in overall size and morphology. Simple cysts are seen in the epididymis measuring up to 5 mm. No hydrocele or varicoceles. Overlying scrotal skin is normal in thickness. Doppler: Color and pulse Doppler demonstrate normal and symmetric arterial flow in both testicles. IMPRESSION: No sonographic signs of testicular torsion or epididymitis. Approved by: Dayday Jose M.D. on 01/31/2025 at 12:56
[2025-01-31 12:58] LABS: Add Manual Diff / Slide Review NO; Basophils Absolute Auto 100 /uL (0-100); Basophils Percent Auto 0.4 % (0-2); Eosinophils Absolute Auto 400 /uL (0-450); Eosinophils Percent Auto 2.7 % (2-4); Hematocrit 41.5 % (41-53); Hemoglobin 14.4 g/dL (13.5-17.5); Lymphocytes Absolute Auto 1200 /uL (1100-4500); Lymphocytes Percent Auto 9.2 % (25-40); Mean Corpuscular HGB Conc 34.6 % (30-36); Mean Corpuscular Hemoglobin 30.5 PG (26-34); Mean Corpuscular Volume 88.1 fL (80-100); Monocytes Absolute Auto 1100 /uL (0-900); Monocytes Percent Auto 8.2 % (3-14); Neutrophils Absolute Auto 10600 /uL (1500-7000); Neutrophils Percent Auto 79.5 % (50-75); Platelet Count 380 X10^3/uL (150-400); Red Blood Cell Count 4.71 X10^6/uL (4.5-5.9); Red Cell Distribution Width 13.5 % (11.6-14.8); White Blood Cell Count 13.3 X10^3/uL (4.5-11.0)
[2025-01-31] MEDS: ACETAMINOPHEN 325 MG TABLET 975 MG PO (13:02)
[2025-01-31] MEDS: IBUPROFEN 400 MG TABLET 600 MG PO (13:02)
[2025-01-31 13:07] LABS: Adenovirus Not Detected (Not Detect); B. parapertussis Not Detected (Not Detecte); Bordetella pertussis Not Detected (Not Detect); Chlamydophila pneumoniae Not Detected (Not Detect); Coronavirus 229E Not Detected (Not Detect); Coronavirus HKU1 Not Detected (Not Detect); Coronavirus NL 63 Not Detected (Not Detect); Coronavirus OC43 Not Detected (Not Detect); Human Metapneumovirus Not Detected (Not Detect); Human Rhinovirus/Enterovirus Detected (Not Detect); Influenza A Not Detected (Not Detect); Influenza B Not Detected (Not Detect); Mycoplasma pneumoniae Not Detected (Not Detect); Parainfluenza Virus 1 Not Detected (Not Detect); Parainfluenza Virus 2 Not Detected (Not Detect); Parainfluenza Virus 3 Not Detected (Not Detect); Parainfluenza Virus 4 Not Detected (Not Detect); Respiratory Syncytial Virus Not Detected (Not Detect); SARS- CoV-2 Not Detected (Not Detecte)
[2025-01-31 13:13] LABS: Lactate (Lactic Acid) 0.9 mmol/L (0.7-2.1)
[2025-01-31 13:15] LABS: Alanine Aminotransferase 21 IU/L (<50); Albumin 4.7 g/dL (3.5-5.0); Albumin Globulin Ratio 1.2 (1.0-2.8); Alkaline Phosphatase 51 U/L (38-126); Aspartate Aminotransferase 28 IU/L (17-59); BUN Creatinine Ratio 16.9 (6-22); Bilirubin Total 0.6 mg/dL (0.2-1.3); Blood Urea Nitrogen 13 mg/dL (9-20); Calcium 9.4 mg/dL (8.4-10.2); Carbon Dioxide 23 mmol/L (22-32); Chloride 103 mmol/L (98-107); Estimated Glomerular Filt Rate > 60 mL/min (>60); Globulin 3.9 g/dL (1.7-4.1); Glucose 82 mg/dL (70-99); HEMOLYSIS < 15 (0-50); Lipase 47 U/L (23-300); Potassium 3.9 mmol/L (3.4-5.1); Sodium 137 mmol/L (137-145); Total Protein 8.6 g/dL (6.3-8.2)
[2025-01-31 13:32] VITALS: BP 130/73; PULSE 84; RESP 20; O2SAT 96
[2025-01-31] MEDS: SODIUM CHLORIDE 0.9% 1,000 ML 1000 ML IV (13:37)
[2025-01-31] MEDS: cefTRIAXone 1,000 MG in SODIUM CHLORIDE 0.9% 100 ML 200 MG IV (13:53)
[2025-01-31 14:29] VITALS: BP 130/72; PULSE 80; RESP 20; TEMP 37.1; O2SAT 97
[2025-01-31 15:12] LABS: Urine N gonorrhoeae NOT DETECTED
[2025-01-31 15:16] LABS: Urine Chlamydia NOT DETECTED
== END 2025-01-31 14:31 | disposition home or self-care (01) ==
PROVIDERS: Emergency Provider Physician Assistant; PCP Family Medicine
DX: N39.0 Urinary tract infection, site not specified (principal); B34.8 Other viral infections of unspecified site; R30.0 Dysuria; N50.812 Left testicular pain
CPT/HCPCS: 36415; 74018; 76870; 80053; 81003; 81015; 83605; 83690; 85025; 87086; 87491; 87591; 87633; 93975; 96365; 99284; J0696

== ENCOUNTER → 2025-06-11 11:58 | Outpatient (CLI) | payer OTHER, SELFPAY | LOC: LAB 12:30 | PROVIDERS: PCP Family Medicine; Visit Provider Family Medicine | DX: R39.9 Unspecified symptoms and signs involving the genitourinary system (principal) | CPT/HCPCS: 87086 ==